=== PATIENT | male | born 1935 | race Caucasian/White ===

== ENCOUNTER → 2017-03-24 | Day surgery (SDC) | payer OTHER ==
[~2017-03-24] MED LIST: ATORVASTATIN CA20 MG PO; AVAPRO PO; FISH OIL/OMEGA 3 PO; FLOMAX0.4 M1 PO; GLUCOPHAGE XR500 MG PO; LIPITOR PO; MOBIC PO; NORVASC PO; PIOGLITAZONE-M1 EAC1 PO; PRILOSEC PO; PROBENECID500 MG PO; VITA EYES PO
--- NOTE | ~2017-03-24 | OR ---
Unit #: [id number] #: [id number] Patient: SUSHIL MAN [id number] [address] [place], [place] [address] [id number] O MR#: [id number] NAME: SUSHIL MAN ROOM: Date of Procedure: 03/24/2017 Admission Date: 03/24/2017 Surgeon: Ford Jerez M.D. : 1935 Attending Physician: Ford Jerez M.D. Primary Care Physician: Dmitri Abraham M.D. PROCEDURE OPERATIVE NOTE PREOPERATIVE DIAGNOSES Back pain, radiculopathy, degenerative disc disease, spinal stenosis, spondylolisthesis. POSTOPERATIVE DIAGNOSES Back pain, radiculopathy, degenerative disc disease, spinal stenosis, spondylolisthesis. PROCEDURE PERFORMED Lumbar epidural steroid injection, fluoroscopic guidance, needle localization. HISTORY The patient is an 82-year-old male with back, bilateral lower extremity pains (1) conservative measures. Workup demonstrated multilevel multifactorial degenerative changes most significant at L5-S1 but abnormal from L3 through S1. (2) trial of epidural steroids based on his pathology and symptomatology. Risks and benefits of all this were all reviewed with the patient. DESCRIPTION OF PROCEDURE The patient was placed in a seated position. Standard monitors were applied and 2 mg of Versed was given for sedation and anxiolysis, which were adequate. Vital signs remained stable. A sterile prep and drape then of the lumbar area was performed. The skin at the L5 level was localized with 1% lidocaine. An 18-gauge [employer]ad needle was then advanced via loss of resistance technique and fluoroscopic guidance in toward the epidural space. The patient did not complain of any pain or paresthesia during needle advancement. After confirming proper positioning with fluoroscopy and radiographic contrast, 80 mg of Depo-Medrol and 4 mL of 0.125% bupivacaine were deposited. The patient tolerated the procedure otherwise well and was discharged to the recovery room in stable condition. Dictated by... Esther Linton/moisés TD: 03/24/2017 10:26 JOB #: [id number] Unit #: [id number] #: [id number] Patient: MAGDASUSHIL PROCEDURE OPERATIVE NOTE Page 1 of 1 X Ford Jerez MD X PROCEDURE OPERATIVE NOTE
== END | disposition home or self-care (01) ==
LOC: CCSC 08:10
DX: M51.17 Intervertebral disc disorders with radiculopathy, lumbosacral region (principal); M43.17 Spondylolisthesis, lumbosacral region; M48.06 Spinal stenosis, lumbar region; M19.90 Unspecified osteoarthritis, unspecified site; I10 Essential (primary) hypertension; E11.9 Type 2 diabetes mellitus without complications; N40.0 Benign prostatic hyperplasia without lower urinary tract symptoms
CPT/HCPCS: J1040; J2250

== ENCOUNTER → 2017-04-12 | Day surgery (SDC) | payer OTHER ==
--- NOTE | ~2017-04-12 | OR ---
Unit #: [id number] #: [id number] Patient: SUSHIL MAN [id number] [address] [place], [place] [address] [id number] O MR#: [id number] NAME: SUSHIL MAN ROOM: Date of Procedure: 04/12/2017 Admission Date: 04/12/2017 Surgeon: Ford Jerez M.D. : 1935 Attending Physician: Ford Jerez M.D. Primary Care Physician: Dmitri Abraham M.D. OPERATIVE REPORT PREOPERATIVE DIAGNOSES Back pain, radiculopathy, spinal stenosis, spondylolisthesis, herniated nucleus pulposus, facet disease. POSTOPERATIVE DIAGNOSES Back pain, radiculopathy, spinal stenosis, spondylolisthesis, herniated nucleus pulposus, facet disease. PROCEDURE PERFORMED Lumbar epidural steroid injection with fluoroscopic guidance for needle localization. INDICATIONS FOR PROCEDURE The patient is an 82-year-old male, who presented with back and bilateral lower extremity pain and not settled with conservative measures. Workup demonstrated multilevel multifactorial degenerative change from L3 through S1, anterolisthesis at L4-L5, significant neural foraminal narrowing left greater than right, left L4-L5 disk herniation, and broad-based bulge in stenosis at L3-L4 level. Based on history, pathology, and symptomatology, decision was made to give an epidural steroid injection. First was done about 3 weeks ago resulted in mild to moderate improvement of first 2 to 3 weeks. The pain began to return. Plan today is to repeat a second injection. He may well be one of the patient to require a series, he gets optimal relief. We will look to schedule final injection about 3 weeks time. DESCRIPTION OF PROCEDURE The patient was placed in a seated position. Standard monitors were applied. Sterile prep and drape of the lumbar area was performed. The skin then at the L4-L5 level was localized with 1% lidocaine. An 18-gauge [employer] needle was then advanced via loss of resistance technique and fluoroscopic guidance in toward the epidural space. After confirming proper positioning with fluoroscopy and radiographic contrast, 80 mg of Depo-Medrol and 4 mL of 0.125% bupivacaine were deposited. The patient tolerated the procedure otherwise well and was discharged to recovery room in stable condition. Dictated by... Ford Jerez M.D. Unit #: [id number] #: [id number] Patient: SUSHIL MAN JAMAAL/ion TD: 04/12/2017 20:36 JOB #: [id number] CC: Art Ferrera M.D. OPERATIVE REPORT Page 1 of 1 X Ford Jerez MD X PROCEDURE OPERATIVE NOTE
== END | disposition home or self-care (01) ==
LOC: CCSC 07:03
DX: M51.16 Intervertebral disc disorders with radiculopathy, lumbar region (principal); M43.16 Spondylolisthesis, lumbar region; M48.06 Spinal stenosis, lumbar region; E11.9 Type 2 diabetes mellitus without complications; I10 Essential (primary) hypertension; M19.90 Unspecified osteoarthritis, unspecified site; N40.0 Benign prostatic hyperplasia without lower urinary tract symptoms
CPT/HCPCS: J1040; J2250